=== PATIENT | female | born 1950 | race Caucasian/White ===

== ENCOUNTER 2016-11-12 05:40 | Day surgery (SDC) | payer OTHER ==
--- NOTE | 2016-11-12 06:38 | PDHPUP ---
History & Physical Update H&P update statement: This history and physical update is based on an assessment of the patient which was completed after admission or registration (within 24 hours), but prior to the surgery/procedure.
[2016-11-12] MEDS ORDERED: CLINDAMYCIN 900 MG/DEXTROSE 50 ML IV ONE (06:40)
[2016-11-12] MEDS ORDERED: LIDOCAINE 1% 2 ML INJ ID PRN (06:41)
[2016-11-12] MEDS ORDERED: LR 1,000 ML IV ONE (06:41)
[2016-11-12] MEDS ORDERED: MIDAZOLAM 2 MG/2 ML VIAL IVP ONE (06:57)
--- NOTE | 2016-11-12 06:57 | PDANEPAE ---
ANE History of Present Illness L arm Av fistula ANE Past Medical History - Cardiovascular History Hx Hypertension: Yes Hx Arrhythmias: No Hx Chest Pain: No Hx Coronary Artery / Peripheral Vascular Disease: No Hx CHF / Valvular Disease: No Hx Palpitations: No - Pulmonary History Hx COPD: No Hx Asthma/Reactive Airway Disease: No Hx Recent Upper Respiratory Infection: No Hx Oxygen in Use at Home: No Hx Sleep Apnea: No Sleep Apnea Screening Result - Last Documented: Negative - Neurologic History Hx Cerebrovascular Accident: No Hx Seizures: No Hx Dementia: No - Endocrine History Hx Diabetes: Yes - Renal History Hx Renal Disorders: Yes - Liver History Hx Hepatic Disorders: No - Neurological & Psychiatric Hx Hx Neurological and Psychiatric Disorders: Yes Neurological / Psychiatric History Comment: HALLUCINATIONS. DEPRESSION - Cancer History Hx Cancer: No - Congenital Disorder History Hx Congenital Disorders: No - GI History Hx Gastrointestinal Disorders: No - Other Health History Other Health History: PT'S DAUGHTER STATED "SHE HAS BRIAN-BOOTS ON AND HER LEGS ARE WRAPPED TO HELP WITH THE SWELLING. SHE HAS A HEALING SORE ON THE TOP OF HER LEFT FOOT." - Chronic Pain History Chronic Pain: Yes (BILATERAL HANDS) - Surgical History Prior Surgeries: 4 C-SECTIONS - LAST ONE 1988 ANE Review of Systems - Exercise capacity METS (RN): 2 METS ANE Patient History - Allergies Allergies/Adverse Reactions: Penicillins Allergy (Verified 11/10/16 12:16) Sulfa (Sulfonamide Antibiotics) Allergy (Verified 11/10/16 12:16) - Home Medications Home Medications: Depakote 11/10/16 [Last Taken Unknown] Divalproex 11/10/16 [Last Taken Unknown] Irbesartan 11/10/16 [Last Taken Unknown] Levothyroxine 11/10/16 [Last Taken Unknown] Melatonin 11/10/16 [Last Taken Unknown] Novolin R 11/10/16 [Last Taken Unknown] Renavit Tablet 11/10/16 [Last Taken Unknown] Tylenol 11/10/16 [Last Taken Unknown] traMADol 11/10/16 [Last Taken Unknown] - Smoking Hx Smoking Status: Never smoked - Family Anes Hx Family Hx Anesthesia Complications: N/A ANE Labs/Vital Signs - Labs Result Diagrams: 11/12/16 06:50 11/12/16 06:50 - Vital Signs Blood Pressure: 155/101 Heart Rate: 77 Respiratory Rate: 20 O2 Sat (%): 92 Height: 152.4 cm Weight: 73.482 kg ANE Physical Exam - Airway Neck exam: FROM Mallampati Score: Class 3 Mouth exam: normal dental/mouth exam - Pulmonary Pulmonary: no respiratory distress - Cardiovascular Cardiovascular: regular rate and rhythym - ASA Status ASA Status: III ANE Anesthesia Plan Anesthesia Plan: GA w LMA
[2016-11-12 07:03] LABS: % IMMATURE GRANULYOCYTES 0.4 % (0.0-1.1); ABSOLUTE IMMATURE GRANULOCYTES 0.03 10^3/uL (0.00-0.10); ADD DIFF? NO; ADD MORPH? NO; ADD SCAN? NO; ATYPICAL LYMPHOCYTE FLAG 10 (0-99); FRAGMENT RBC FLAG 0 (0-99); HEMATOCRIT 34.4 % (38.0-47.0); HEMOGLOBIN 11.6 g/dL (12.6-16.3); LEFT SHIFT FLG 0 (0-99); LIPEMIA HEMOLYSIS FLAG 80 (0-99); MEAN CELL HEMOGLOBIN 30.8 pg (27.9-34.1); MEAN CELL HEMOGLOBIN CONCENTR. 33.7 g/dL (32.4-36.7); MEAN CELL VOLUME 91.2 fL (81.5-99.8); MEAN PLATELET VOLUME 10.1 fL (8.7-11.7); PLATELET CLUMPS FLAG 30 (0-99); PLATELET COUNT 197 10^3/uL (150-400); RED BLOOD CELL COUNT 3.77 10^6/uL (4.18-5.33); RED CELL DISTRIBUTION WIDTH 13.9 % (11.5-15.2)
[2016-11-12] MEDS ORDERED: THROMBIN (BOVINE) 5,000 UNIT VIAL TP ONE (07:07)
[2016-11-12] MEDS ORDERED: BUPIVACAINE 0.5% 30 ML SDV ONE (07:08)
[2016-11-12] MEDS ORDERED: ONDANSETRON 4 MG/2 ML VIAL ONE (07:10)
[2016-11-12] MEDS ORDERED: fentaNYL 100 MCG/2 ML INJ ONE (07:10)
[2016-11-12] MEDS ORDERED: PROPOFOL 200 MG/20 ML VIAL ONE (07:10)
[2016-11-12] MEDS ORDERED: DEXAMETHASONE 4 MG/ML VIAL ONE (07:10)
[2016-11-12] MEDS ORDERED: LIDOCAINE 2% 5 ML SDV ONE (07:10)
[2016-11-12 07:22] LABS: ANION GAP 9 mEq/L (8-16); CALCIUM 8.6 mg/dL (8.5-10.4); CARBON DIOXIDE 28 mEq/l (22-31); CHLORIDE 104 mEq/L (97-110); CREATININE 1.9 mg/dL (0.6-1.0); GLOMERULAR FILTRATION RATE 26; GLUCOSE 133 mg/dL (70-100); POTASSIUM 3.4 mEq/L (3.5-5.2); SODIUM 141 mEq/L (134-144)
--- NOTE | 2016-11-12 07:30 | POSTOPPROG ---
Post Op Note Date of Operation: 11/12/16 Surgeon: Emir Kearney Cad Operator: ghazala Fitzgerald Anesthesiologist: Dr ramos Anesthesia: GET(General Endotracheal) Pre-op Diagnosis: renal failure, need for dialysis access Post-op Diagnosis: same Indication: renal failure Procedure: LUE AVF Inf/Abcess present in the surg proc area at time of surgery?: No Depth: Deep Incisional (Fascial) EBL: 50-100
--- NOTE | 2016-11-12 07:39 | POSTANESTH ---
Post Anesthetic Evaluation Cardiovascular Status: Normal, Stable, Similar to Pre-Op Cond Respiratory Status: Normal, Stable, Similar to Pre-op Cond. Level of Consciousness/Mental Status: Can Participate in Eval, Mildly Sleepy, Arousable Pain Control: Adequate, Prn Tx Ordered Nausea/Vomiting Control: Adequate, Prn Tx Ordered Complications Possibly Related to Anesthesia: None Noted
[2016-11-12] MEDS ORDERED: MEPERIDINE 25 MG/ML SYR IVP PRN (07:40)
[2016-11-12] MEDS ORDERED: DEXAMETHASONE 4 MG/ML VIAL IVP PRN (07:40)
[2016-11-12] MEDS ORDERED: fentaNYL 100 MCG/2 ML INJ IVP PRN (07:40)
[2016-11-12] MEDS ORDERED: HYDROCODONE/APAP 5/325 TAB PO PRN (07:40)
[2016-11-12] MEDS ORDERED: OXYCODONE/APAP 5/325 TAB PO PRN (07:40)
[2016-11-12] MEDS ORDERED: HYDROmorphONE/DILAUDID 1 MG/ML SYR IVP PRN (07:40)
[2016-11-12] MEDS ORDERED: NALOXONE HCL 0.4 MG/ML INJ IVP PRN (07:40)
[2016-11-12] MEDS ORDERED: ONDANSETRON 4 MG/2 ML VIAL IVP PRN (07:40)
[2016-11-12] MEDS ORDERED: ACETAMINOPHEN 500 MG TAB PO PRN (07:40)
[2016-11-12] MEDS ORDERED: PROMETHAZINE HCL 25 MG/ML INJ IVP PRN (07:40)
[2016-11-12] MEDS ORDERED: epHEDrine SULFATE 10 MG/ML SYR ONE (08:55)
[2016-11-12] MEDS ORDERED: PHENYLEPHRINE HCL 100 MCG/ML SYR ONE (08:55)
[2016-11-12] MEDS ORDERED: PROTAMINE SULFATE 50 MG/5 ML VIAL IVP ONE (09:17)
[2016-11-12 09:52] VITALS: TEMP 97.2
[2016-11-12 10:51] VITALS: PULSE 87; RESP 11
[2016-11-12 11:57] VITALS: BP 123/76; O2SAT 93
--- NOTE | 2016-11-13 22:31 | GOP ---
[f rep st] OPERATIVE REPORT DATE OF OPERATION: SURGEON: Emir Kearney MD PREOPERATIVE DIAGNOSIS: Chronic renal failure. POSTOPERATIVE DIAGNOSIS: Chronic renal failure. PROCEDURE PERFORMED: 1. Left arm ultrasound vein mapping. 2. Left brachial cephalic AV fistula. FINDINGS: The patient was found to have a good basilic vein on the upper left arm, but also an adeq uate cephalic vein. Cephalic vein in the forearm was marginal and the patient is diabetic. Elected to do a brachiocephalic AV fistula. However, the incision was made in the antecubital space and th e cephalic vein was dissected free in the antecubital space and dissected distal to the antecubital space until it began to bifurcate, at which point the branches were ligated and then divided. There was good backflow from the vein. The dissection extended down through subcutaneous tissue and thro ugh the biceps aponeurosis exposing the brachial artery which was dissected free and encircled with vessel loops. The patient was systemically heparinized. The cephalic vein was mobilized over to th e brachial artery and an end-to-side anastomosis was made creating a 1 cm anastomosis between the ce phalic vein and the brachial artery. This was done with a running 6-0 Prolene suture. Flow was fir st established through the AV fistula and then back down the brachial artery to the hand. We mainta ined a good pulse in her hand and good capillary filling while maintaining a good flow and bruit in the AV fistula. The suture line appeared to be hemostatic. The wound was closed with a running 3-0 Vicryl suture for the subcutaneous tissue. The area was infiltrated with some Marcaine and sprayed with some topical thrombin. The skin was closed with a running 4-0 Monocryl subcuticular stitch. The skin was then dressed with Dermabond glue. She tolerated the procedure well. She was taken to the recovery room in good condition. There were no complications. Blood loss was minimal. DESCRIPTION OF PROCEDURE: /[id number]/MODL
== END 2016-11-12 11:52 | disposition home or self-care (01) ==
LOC: FSGY 05:40
PROVIDERS: ATTEND Surgery
DX: N18.6 End stage renal disease (principal); E11.22 Type 2 diabetes mellitus with diabetic chronic kidney disease; I12.0 Hypertensive chronic kidney disease with stage 5 chronic kidney disease or end stage renal disease
CPT/HCPCS: J1100; J1644; J2250; J2370; J2405; J2704; J2720; J3010

== ENCOUNTER 2016-12-04 06:35 | Day surgery (SDC) | payer OTHER ==
[2016-12-04] MEDS ORDERED: ceFAZolin 2 GM/DEXTROSE 100 ML IV ONE (06:55)
[2016-12-04 07:12] VITALS: PULSE 39
[2016-12-04] MEDS ORDERED: THROMBIN (BOVINE) 5,000 UNIT VIAL TP ONE (07:18)
[2016-12-04] MEDS ORDERED: THROMBIN (BOVINE) 20,000 UNIT SPRAY TP ONE (07:18)
[2016-12-04] MEDS ORDERED: PAPAVERINE HCL 60 MG/2 ML SDV ONE (07:19)
[2016-12-04] MEDS ORDERED: BUPIVACAINE 0.5% 30 ML SDV ONE (07:19)
[2016-12-04] MEDS ORDERED: NS 1,000 ML IV ONE (07:39)
[2016-12-04 07:55] LABS: % IMMATURE GRANULYOCYTES 0.4 % (0.0-1.1); ABSOLUTE IMMATURE GRANULOCYTES 0.03 10^3/uL (0.00-0.10); ADD DIFF? NO; ADD MORPH? NO; ADD SCAN? NO; ATYPICAL LYMPHOCYTE FLAG 10 (0-99); FRAGMENT RBC FLAG 0 (0-99); HEMATOCRIT 35.1 % (38.0-47.0); HEMOGLOBIN 11.5 g/dL (12.6-16.3); LEFT SHIFT FLG 0 (0-99); LIPEMIA HEMOLYSIS FLAG 80 (0-99); MEAN CELL HEMOGLOBIN 31.3 pg (27.9-34.1); MEAN CELL HEMOGLOBIN CONCENTR. 32.8 g/dL (32.4-36.7); MEAN CELL VOLUME 95.4 fL (81.5-99.8); MEAN PLATELET VOLUME 10.5 fL (8.7-11.7); PLATELET CLUMPS FLAG 0 (0-99); PLATELET COUNT 276 10^3/uL (150-400); RED BLOOD CELL COUNT 3.68 10^6/uL (4.18-5.33); RED CELL DISTRIBUTION WIDTH 13.8 % (11.5-15.2)
[2016-12-04] MEDS ORDERED: levOFLOXACIN 500 MG/DEXTROSE 100 ML IV ONE (07:59)
--- NOTE | 2016-12-04 07:59 | PDHPUP ---
History & Physical Update H&P update statement: This history and physical update is based on an assessment of the patient which was completed after admission or registration (within 24 hours), but prior to the surgery/procedure. H&P update: H&P reviewed & patient examined, no change in patient's condition since H&P completed
--- NOTE | 2016-12-04 08:10 | PDHPUP ---
History & Physical Update H&P update statement: This history and physical update is based on an assessment of the patient which was completed after admission or registration (within 24 hours), but prior to the surgery/procedure. H&P update: H&P reviewed & patient examined, no change in patient's condition since H&P completed H&P changes: Patient states she has a rash and difficulty breathing with penicillins
[2016-12-04 08:15] LABS: ANION GAP 12 mEq/L (8-16); CALCIUM 8.5 mg/dL (8.5-10.4); CARBON DIOXIDE 26 mEq/l (22-31); CHLORIDE 100 mEq/L (97-110); CREATININE 3.1 mg/dL (0.6-1.0); GLOMERULAR FILTRATION RATE 15; GLUCOSE 179 mg/dL (70-100); POTASSIUM 3.9 mEq/L (3.5-5.2); SODIUM 138 mEq/L (134-144)
--- NOTE | 2016-12-04 08:45 | PDANEPAE ---
ANE History of Present Illness AV Fistula Banding ANE Past Medical History - Cardiovascular History Hx Hypertension: Yes Hx Arrhythmias: No Hx Chest Pain: No Hx Coronary Artery / Peripheral Vascular Disease: No Hx CHF / Valvular Disease: No Hx Palpitations: No - Pulmonary History Hx COPD: No Hx Asthma/Reactive Airway Disease: No Hx Recent Upper Respiratory Infection: No Hx Oxygen in Use at Home: No Hx Sleep Apnea: No Sleep Apnea Screening Result - Last Documented: Negative - Neurologic History Hx Cerebrovascular Accident: No Hx Seizures: No Hx Dementia: No - Endocrine History Hx Diabetes: Yes Endocrine History Comment: IDDM - Renal History Hx Renal Disorders: Yes Renal History Comment: CHRONIC RENAL FAILURE BEGAN. DIALYSIS 2 MONTHS AGO VIA NECK CATHETER - Liver History Hx Hepatic Disorders: No - Neurological & Psychiatric Hx Hx Neurological and Psychiatric Disorders: Yes Neurological / Psychiatric History Comment: HALLUCINATIONS. 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 TONSILLECTOMY. APPENDECTOMY ANE Review of Systems - Exercise capacity METS (RN): 2 METS ANE Patient History - Allergies Allergies/Adverse Reactions: Penicillins Allergy (Severe, Verified 12/04/16 07:04) Anaphylaxis Sulfa (Sulfonamide Antibiotics) Allergy (Verified 11/10/16 12:16) - Home Medications Home Medications: Depakote BID 11/10/16 [Last Taken Unknown] Irbesartan DAILY06 11/10/16 [Last Taken 11/11/16 14:30] Levothyroxine DAILY06 11/10/16 [Last Taken 11/11/16 13:00] Melatonin HS 11/10/16 [Last Taken 11/11/16 22:45] Novolin R DAILY AT 6PM 11/10/16 [Last Taken 11/11/16 20:30] traMADol PO PRN 11/10/16 [Last Taken 11/11/16] - NPO status NPO Since - Liquids (Date): 12/03/16 NPO Since - Liquids (Time): 21:30 NPO Since - Solids (Date): 12/03/16 NPO Since - Solids (Time): 21:30 - Smoking Hx Smoking Status: Never smoked - Family Anes Hx Family Hx Anesthesia Complications: N/A ANE Labs/Vital Signs - Labs Result Diagrams: 12/04/16 07:40 12/04/16 07:40 - Vital Signs Heart Rate: 39 Height: 152.4 cm Weight: 70.307 kg ANE Physical Exam - Airway Neck exam: FROM Mallampati Score: Class 2 - Pulmonary Pulmonary: clear to auscultation - Cardiovascular Cardiovascular: regular rate and rhythym - ASA Status ASA Status: III ANE Anesthesia Plan Anesthesia Plan: GA w LMA
[2016-12-04] MEDS ORDERED: PROTAMINE SULFATE 50 MG/5 ML VIAL IVP ONE (08:48)
[2016-12-04] MEDS ORDERED: PROPOFOL/EMULSION 500 MG/50 ML BOTTLE IV ONE (08:49)
[2016-12-04] MEDS ORDERED: LIDOCAINE 2% 5 ML SDV ONE (08:51)
[2016-12-04] MEDS ORDERED: PROPOFOL 200 MG/20 ML VIAL ONE (08:51)
[2016-12-04] MEDS ORDERED: fentaNYL 100 MCG/2 ML INJ ONE (09:07)
[2016-12-04] MEDS ORDERED: epHEDrine SULFATE 10 MG/ML SYR ONE (09:22)
[2016-12-04] MEDS ORDERED: PHENYLEPHRINE HCL 100 MCG/ML SYR ONE (09:31)
[2016-12-04] MEDS ORDERED: ONDANSETRON 4 MG/2 ML VIAL IVP PRN (10:07)
[2016-12-04] MEDS ORDERED: NALOXONE HCL 0.4 MG/ML INJ IVP PRN (10:07)
[2016-12-04] MEDS ORDERED: fentaNYL 100 MCG/2 ML INJ IVP PRN (10:07)
[2016-12-04] MEDS ORDERED: ACETAMINOPHEN 500 MG TAB PO PRN (10:07)
--- NOTE | 2016-12-04 10:08 | POSTANESTH ---
Post Anesthetic Evaluation Cardiovascular Status: Normal, Stable Respiratory Status: Normal, Stable Level of Consciousness/Mental Status: Can Participate in Eval, Alert and Oriented Pain Control: Adequate, Prn Tx Ordered Nausea/Vomiting Control: Adequate, Prn Tx Ordered Complications Possibly Related to Anesthesia: None Noted
--- NOTE | 2016-12-04 10:12 | POSTOPPROG ---
Post Op Note Date of Operation: 12/04/16 Surgeon: Grecia Rodriguez Top Frame Maker: Grecia Rodriguez Anesthesiologist: Sarah Anesthesia: GET(General Endotracheal) Pre-op Diagnosis: left hand paresthesia Post-op Diagnosis: left hand paresthesia Indication: wosening left hand paresthesia/coolness since the placement of AV fistula Procedure: AV fistula banding Inf/Abcess present in the surg proc area at time of surgery?: No Depth: Superfical (Skin SQ) EBL: Minimal Specimen(s): None
--- NOTE | 2016-12-04 10:44 | CPEKG ---
Heart Rate: 156 RR Interval: 385 P-R Interval: 208 QRSD Interval: 78 QT Interval: 296 QTC Interval: 477 P Jesse: 0 QRS Jesse: -11 T Wave Jesse: 200 EKG Severity - ABNORMAL ECG - EKG Impression: SUPRAVENTRICULAR TACHYCARDIA EKG Impression: LOW VOLTAGE IN FRONTAL LEADS EKG Impression: REPOLARIZATION ABNORMALITY, PROB RATE RELATED Electronically Signed By: Jose Greenfield 05-Dec-2016 07:02:17
[2016-12-04 12:17] LABS: ALANINE AMINOTRANSFERASE 19 IU/L (9-52); ALBUMIN 2.5 g/dL (3.5-5.0); ALKALINE PHOSPHATASE 71 IU/L (38-126); ANION GAP 9 mEq/L (8-16); ASPARTATE AMINOTRANSFERASE 19 IU/L (14-46); BILIRUBIN,TOTAL 0.5 mg/dL (0.1-1.4); CALCIUM 8.3 mg/dL (8.5-10.4); CARBON DIOXIDE 27 mEq/l (22-31); CHLORIDE 100 mEq/L (97-110); CREATININE 3.1 mg/dL (0.6-1.0); GLOMERULAR FILTRATION RATE 15; GLUCOSE 172 mg/dL (70-100); MAGNESIUM 2.3 mg/dL (1.6-2.3); POTASSIUM 3.7 mEq/L (3.5-5.2); SODIUM 136 mEq/L (134-144); TOTAL PROTEIN 5.9 g/dL (6.3-8.2)
[2016-12-04 15:00] VITALS: BP 123/51; RESP 20; O2SAT 93
[2016-12-04 15:09] VITALS: TEMP 97.5
--- NOTE | 2016-12-04 18:55 | GCON ---
[f rep st] CONSULTATION DATE OF CONSULTATION: 12/04/2016 REASON FOR CONSULTATION: New onset of supraventricular tachycardia, CONSULTING PHYSICIAN: Dr. Chacon. HISTORY OF PRESENT ILLNESS: Mrs Ferreira is a pleasant 66-year-old female with a history of diabetes, hypertension and new onset of end-stage renal disease on hemodialysis who was admitted electively to [facility] for revision of left arm fistula. She tolerated the procedure well. Postoperatively, she went into a supraventricular tachycardia with a sustained regular rhythm of 156 beats per minute. This rhythm persisted for approximately 20 minutes and resolved spontaneously. She denied any associated dizziness, lightheadedness, near syncope, or syncope. She denied any complaints of palpitations. She had no complaints of shortness of breath, dyspnea, PND or orthopnea. She denies any complaints of chest pain or chest pressure. Her daughter who is with her states that she has periodically felt dizzy at home over the last several days. Mrs Ferreira does report that she has had intermittent episodes of dizziness but does deny any associated palpitations, lightheadedness, near-syncope or syncope. Currently, at the time of my exam, she is resting comfortably. She is in normal sinus rhythm. EKG after resolution of her SVT demonstrates sinus rhythm with ventricular bigeminy. Mrs Fererira denies any previous history of cardiac arrhythmias, coronary artery disease or previous cardiac work up. CURRENT MEDS: Currently at the time of my exam, she is resting comfortably without complaint. REVIEW OF SYSTEMS: Negative with the exception of a 10-point review of systems as listed above. PAST MEDICAL HISTORY: 1. Diabetes. 2. Hypertension. 3. End-stage renal disease on permanent hemodialysis started approximately 2 months ago followed by Dr. Cuevas of nephrology. 4. Hypothyroidism. SOCIAL HISTORY: She is . She has 4 children. She does not drink alcohol or use illicit drugs. FAMILY HISTORY: Notable for premature coronary artery disease. Her sister from myocardial infarction in her 40s. She had another sister who in her 40s from cancer. She has another sister who is alive and well. Her father of an [place] in his late 70s. Her mother of a myocardial infarction in her early 70s. EXAM: GENERAL: She is awake, alert, oriented, appropriate. In no apparent distress. NECK: There is no evidence of JVP or carotid bruits. LUNGS: Clear to auscultation bilaterally. CARDIAC: S1, S2. Regular rate and rhythm. No murmurs, rubs, or gallops. ABDOMEN: Soft, nontender, nondistended. There is no pulsatile mass or abdominal bruit. VITAL SIGNS: Demonstrate blood pressure of 108/65, heart rate 75 and normal sinus rhythm. LABORATORY DATA: White blood cell count 7.4, hemoglobin 11.5, platelets 276. Sodium 136, potassium 3.7, chloride 100, bicarb 27, BUN 43, creatinine 3.1, glucose 172. EKG demonstrates regular rhythm at 156 beats per minute consistent with supraventricular tachycardia. IMPRESSION: 1. Asymptomatic supraventricular tachycardia consistent with atrioventricular node re-entry tachycardia versus atrioventricular reciprocating tachycardia at a rate of 156 beats per minute. 2. Ventricular bigeminy, asymptomatic. 3. Hypertension. 4. Diabetes. 5. End-stage renal disease on chronic hemodialysis followed by Dr. Cuevas of Nephrology. PLAN: 1. The patient will be discharged from the PACU to [facility] for dialysis. 2. Recommend outpatient workup with the following:. 3. Complete 2D echocardiogram. 4. ZIO patch monitor. 5. Follow up with me in the office after completion of above testing. 6. She will contact me if she has complaints of palpitations, dizziness or syncope. 30 minutes spent coordinating patient care. /[id number]/MODL MTDD
--- NOTE | 2016-12-07 07:50 | CPEKG ---
Heart Rate: 93 RR Interval: 645 P-R Interval: 188 QRSD Interval: 84 QT Interval: 344 QTC Interval: 428 P [place]: 23 QRS [place]: -23 T Wave [place]: 175 EKG Severity - ABNORMAL ECG - EKG Impression: SINUS RHYTHM EKG Impression: VENTRICULAR BIGEMINY Electronically Signed For: Jose Greenfield 07-Dec-2016 07:50:43
--- NOTE | 2016-12-07 07:59 | CPEKG ---
Heart Rate: 93 RR Interval: 645 P-R Interval: 192 QRSD Interval: 84 QT Interval: 308 QTC Interval: 384 P [place]: 35 QRS [place]: -10 T Wave [place]: 245 EKG Severity - ABNORMAL ECG - EKG Impression: SINUS RHYTHM EKG Impression: VENTRICULAR BIGEMINY Electronically Signed By: Jose Greenfield 07-Dec-2016 08:03:09
--- NOTE | 2016-12-08 06:40 | GOP ---
[f rep st] OPERATIVE REPORT DATE OF OPERATION: 12/04/2016 SURGEON: Emir Kearney MD PREOPERATIVE DIAGNOSIS: Early left hand steal syndrome. POSTOPERATIVE DIAGNOSIS: Early left hand steal syndrome. PROCEDURE PERFORMED: 1. AV fistula revision with restrictive banding. 2. Ultrasound vein mapping, left arm. FINDINGS: The patient had a definite improvement in her capillary filling in her radial pulse after 50% banding of her AV fistula. DESCRIPTION OF PROCEDURE: Patient taken to the operating room, where she received satisfactory gene ral endotracheal anesthesia. She was placed in the supine position with her left arm outstretched o n an armboard, prepped and draped in the usual sterile fashion. Incision was made through the previ ous old incision in the antecubital space. Dissection extended down and the AV fistula was dissecte d free, down to and near the arterial-venous anastomosis. A proximal 3 cm of the anastomosis was ex posed and encircled with vessel loops using multiple 5-0 Prolene sutures. The AV fistula flow was c onstricted until there was a good radial pulse and still good persistent flow in the AV fistula. Th is was done in a series of 3 overlapping layers. Hemostasis was assured. After completion of the b anding, the wound was irrigated. It was infiltrated with 0.5% Marcaine, some topical thrombin was p laced in the wound, and this wound was closed in layers using 3-0 Vicryl for the subcu and a 4-0 Mon ocryl subcuticular stitch for the skin. The wound was further infiltrated with 0.5% Marcaine. She tolerated the procedure well. She was taken to the recovery room in good condition. There were no complications. /[id number]/MODL
== END 2016-12-04 14:50 | disposition home or self-care (01) ==
LOC: FSGY 06:35 → UNDOADMOB 16:14 → F2W 16:14
PROVIDERS: ATTEND Surgery
PROC: 03V Upper Arteries, Restriction (ICD-10-PCS; principal; 2016-12-04 08:30)
DX: T82.898A Other specified complication of vascular prosthetic devices, implants and grafts, initial encounter (principal); I47.1 Supraventricular tachycardia; E11.22 Type 2 diabetes mellitus with diabetic chronic kidney disease; I12.0 Hypertensive chronic kidney disease with stage 5 chronic kidney disease or end stage renal disease; N18.6 End stage renal disease; Z99.2 Dependence on renal dialysis; E03.9 Hypothyroidism, unspecified
CPT/HCPCS: J1644; J1956; J2370; J2440; J2704; J2720; J3010

== ENCOUNTER → 2018-02-24 | Outpatient (CLI) | payer OTHER | LOC: FIMAGING 09:31 | PROVIDERS: ATTEND Surgery | DX: Z49.01 Encounter for fitting and adjustment of extracorporeal dialysis catheter (principal); T82.590A Other mechanical complication of surgically created arteriovenous fistula, initial encounter; E11.9 Type 2 diabetes mellitus without complications; I10 Essential (primary) hypertension ==